=== PATIENT | male | born 1980 | race Caucasian/White ===

== ENCOUNTER 2022-05-22 13:59 | Emergency (ER) | payer OTHER, SELFPAY ==
[2022-05-22 14:09] VITALS: BP 149/92; RESP 18; TEMP 37.5; O2SAT 96; BMI 25.8
[2022-05-22 17:06] LABS: Basophils # 0.1 10^3/uL (0.0-0.1); Basophils % 0.4 %; Eosinophils # 0.1 10^3/uL (0.0-0.8); Eosinophils % 0.9 %; Hematocrit 50.7 % (42.0-52.0); Hemoglobin 17.3 g/dL (11.7-16.6); Lymphocytes # 2.7 10^3/uL (0.8-4.8); Lymphocytes % 18.3 %; Mean Corpuscular HGB Conc 34.1 g/dL (30.0-36.0); Mean Corpuscular Hemoglobin 31.9 pg (28.0-34.0); Mean Corpuscular Volume 93.5 fl (80-94); Monocytes # 1.3 10^3/uL (0.2-0.9); Monocytes % 8.8 %; Neutrophils % 71.2 %; Nucleated Red Blood Cells % 0 %; Platelet Count 327 10^3/cmm (130-400); Red Blood Count 5.42 10^6/uL (4.1-5.3); Red Cell Distribution Width 11.9 % (12.1-15.1); White Blood Count 14.6 10^3/uL (4.0-10.0)
--- NOTE | 2022-05-22 17:12 | ED_ITS ---
HPI - Abdominal Pain General: Chief Complaint: Abdominal Pain Stated Complaint: Lower stomach pain Time Seen by Provider: 05/22/22 17:12 History of Present Illness: 41-year-old male patient comes in today with complaints of left side lower abdominal pain x3 days. Patient appears nontoxic. Patient appears in mild to moderate pain. Patient reports no prior surgeries to the abdomen. Patient denies any chronic medical problems. Associated Symptoms: Reports fever(s) Review of Systems Const: Reports: fever(s) GI: Reports: abdominal pain Physical Exam Const: COMMON NORMALS: alert HENMT: COMMON NORMALS: normocephalic HEAD & SCALP: normocephalic Neck/C-Spine: COMMON NORMALS: full ROM Resp: COMMON NORMALS: normal respiratory effort and clear to auscultation bilaterally AUSCULTATION: clear to auscultation bilaterally Cardio: COMMON NORMALS: regular rate and regular rhythm RATE: regular rate RHYTHM: regular rhythm GI: COMMON NORMALS: Soft to palpation PALPATION: Yes Soft to palpation and Yes Tenderness to palpation present (GI) Details: LLQ : COMMON NORMALS: Yes no CVA tenderness BLADDER/KIDNEY EXAM: Yes no CVA tenderness Back/Pelvis: COMMON NORMALS: no CVA tenderness Extremity: COMMON NORMALS: full ROM Neuro: SENSORIUM/ORIENTATION: Yes alert Skin: COMMON NORMALS: turgor normal GENERAL SKIN EXAM: turgor normal Course Vital Signs: Vital signs: Vital Signs Temperature 99.5 F 05/22/22 14:09 Respiratory Rate 18 05/22/22 14:09 Blood Pressure 149/92 05/22/22 14:09 Pulse Oximetry 96 05/22/22 14:09 Oxygen Delivery Me thod 05/22/22 14:09 MDM - Abdominal Pain Medical Decision Making 41-year-old male patient comes in today with complaints of left lower quadrant abdominal pain. On exam abdomen soft with some tenderness in the left lower quadrant. Rebound tenderness is noted. Bowel sounds are present. Vital signs are normal except for a temperature of 99.5. Blood pressure was 149/92. Differential diagnosis includes constipation, diverticulitis, colitis, urinary tract infection. Laboratory values noted a white count of 14,000. Urinalysis was clear. CMP was unremarkable. CT of the abdomen pelvis noted diverticulitis in the sigmoid colon. No obvious signs perforation was noted. Patient appears nontoxic with no signs of an acute surgical abdomen at this time. We will go ahead and start patient on Cipro and Flagyl for the next 7 days. Patient was al so written for some hydrocodone to help with severe pain. Patient reported understanding of care plan need for follow-up or return to the ER. Lab Data : 05/22/22 16:35 05/22/22 16:35 Labs/Radiology: Radiology Impressions Abdomen/Pelvis CT 05/22/22 17:14 IMPRESSION: 1. Acute sigmoid diverticulitis. Developing perforation cannot be excluded. Follow-up to resolution is recommended. 2. Additional findings, as above. Laboratory Results WBC 14.6 10^3/uL (4.0-10.0) H 05/22/22 16:35 RBC 5.42 10^6/uL (4.1-5.3) H 05/22/22 16:35 Hgb 17.3 g/dL (11.7-16.6) H 05/22/22 16:35 Hct 50.7 % (42.0-52.0) 05/22/22 16:35 MCV 93.5 fl (80-94) 05/22/22 16:35 MCH 31.9 pg (28.0-34.0) 05/22/22 16:35 MCHC 34.1 g/dL (30.0-36.0) 05/22/22 16:35 RDW 11.9 % (12.1-15.1) L 05/22/22 16:35 Plt Count 327 10^3/cmm (130-400) 05/22/22 16:35 MPV 10.0 fL (7.4-10.4) 05/22/22 16:35 Neut % (Auto) 71.2 % 05/22/22 16:35 Lymph % (Auto) 18.3 % 05/22/22 16:35 [place] % (Auto) 8.8 % 05/22/22 16:35 Eos % (Auto) 0.9 % 05/22/22 16:35 Baso % (Auto) 0.4 % 05/22/22 16:35 Neut # (Auto) 10.40 10^3/uL (1.8-7.7) H 05/22/22 16:35 Lymph # (Auto) 2.7 10^3/uL (0.8-4.8) 05/22/22 16:35 [place] # (Auto) 1.3 10^3/uL (0.2-0.9) H 05/22/22 16:35 Eos # (Auto) 0.1 10^3/uL (0.0-0.8) 05/22/22 16:35 Baso # (Auto) 0.1 10^3/uL (0.0-0.1) 05/22/22 16:35 Nucleated RBC % (auto) 0 % 05/22/22 16:35 Nucleated RBCs # 0.0 /100WBC 05/22/22 16:35 Sodium 135 mmol/L (136-145) L 05/22/22 16:35 Potassium 3.8 mmol/L (3.5-5.1) 05/22/22 16:35 Chloride 98 mmol/L (98-107) 05/22/22 16:35 Carbon Dioxide 23 mmol/L (22-29) 05/22/22 16:35 Anion Gap 17.8 (5-19) 05/22/22 16:35 BUN 10 mg/dL (6-20) 05/22/22 16:35 Creatinine 0.7 mg/dL (0.7-1.2) 05/22/22 16:35 GFR Calculation 124.9 mL/min (90-130) 05/22/22 16:35 Glucose 85 mg/dL (65-115) 05/22/22 16:35 Calculated Osmolality 278 mOsm/kg (285-295) L 05/22/22 16:35 Calcium 9.6 mg/dL (8.5-10.5) 05/22/22 16:35 Total Bilirubin 0.5 mg/dL (0.15-1.2) 05/22/22 16:35 AST 14 U/L (0-40) 05/22/22 16:35 ALT 17 U/L (0-41) 05/22/22 16:35 Alkaline Phosphatase 96 U/L (40-130) 05/22/22 16:35 Total Protein 7.9 g/dL (6.6-8.7) 05/22/22 16:35 Albumin 4.3 g/dL (3.5-5.2) 05/22/22 16:35 Globulin 3.6 g/dL (1.3-4.6) 05/22/22 16:35 Lipase 16 U/L (13-60) 05/22/22 16:35 Urine Color Yellow (Yellow) 05/22/22 14:55 Urine Appearance Clear (CLEAR) 05/22/22 14:55 Urine pH 6 (5-7) 05/22/22 14:55 Ur Specific [place] 1.005 (1.005-1.030) 05/22/22 14:55 Urine Protein Neg (Negative) 05/22/22 14:55 Urine Glucose (UA) Norm (Normal) 05/22/22 14:55 Urine Ketones Negative (Negative) 05/22/22 14:55 Urine Blood Neg (Negative) 05/22/22 14:55 Urine Nitrate Negative (Negative) 05/22/22 14:55 Urine Bilirubin Neg (Negative) 05/22/22 14:55 Urine Urobilinogen Neg mg/dL (Negative) 05/22/22 14:55 Ur Leukocyte Esterase Negative (Negative) 05/22/22 14:55 Discharge Plan Discharge Patient Disposition: Home Clinical Impression: Diverticulitis Condition: Stable Prescriptions: New ciprofloxacin HCl 500 mg tablet 500 mg PO BID Qty: 14 0RF metronidazole 500 mg tablet 500 mg PO TID Qty: 21 0RF hydrocodone-acetaminophen 5-325 mg tablet 1 tab PO Q6H PRN (Reason: pain (scale score 7-10)) Qty: 10 0RF Discharge Orders: Discharge ED (Routine); Ordered 05/22/22 Ordered By: Humberto Rodriguez Discharge Diet: Usual diet Discharge Activity: Increase activity as tolerated Patient Instructions: Diverticulitis (ED), Opioid Safety Activity Restrictions/Additional Instructions: Drink plenty of water with medications. Take antibiotics as directed. Follow- up with primary care in 2 to 3 days for recheck. Return to ER for worsening symptoms such as fever greater than 100.5, blood in vomit or stool, inability to hold fluids down, or uncontrolled pain. 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
--- NOTE | 2022-05-22 17:14 | CTR_ITS ---
PROCEDURE INFORMATION: Exam: CT Abdomen And Pelvis With Contrast Exam date and time: 05/22/2022 5:41 PM Age: 41 years old Clinical indication: Abdominal pain; Localized; Left lower quadrant (llq); Additional info: Left lower abd pain TECHNIQUE: Imaging protocol: Computed tomography of the abdomen and pelvis with contrast. Axial, coronal and sagittal reformatted images were created and reviewed. Radiation optimization: All CT scans at this facility use at least one of these dose optimization techniques: automated exposure control; mA and/or kV adjustment per patient size (includes targeted exams where dose is matched to clinical indication); or iterative reconstruction. Contrast material: OMNI 350; Contrast volume: 80 ml; Contrast route: INTRAVENOUS (IV); COMPARISON: No relevant prior studies available. RADIATION DOSE METRICS: Total DLP (mGy-cm): 538.33 FINDINGS: Diaphragm: Small hiatal hernia. Liver: Unremarkable. Gallbladder and bile ducts: No radiodense gallstones. No biliary ductal dilatation. Pancreas: Unremarkable. Spleen: Unremarkable. Adrenal glands: Normal. No mass. Kidneys and ureters: No mass. No radiodense calculi. No hydronephrosis. Stomach and bowel: Focal area of wall thickening and associated pericolonic stranding in the sigmoid colon in a region containing multiple diverticula. Questionable small focus of developing extraluminal gas versus diverticulum (series 4, image 69). No obstruction. No pneumatosis. Appendix: Normal. Intraperitoneal space: No ascites. No organized collection. Vasculature: Unremarkable. No aneurysm. Lymph nodes: No pathologically enlarged lymph nodes. Urinary bladder: Unremarkable as visualized. Reproductive: Unremarkable. Bones/joints: No acute osseous abnormality. Soft tissues: Unremarkable. CT/CT abdomen pelvis w con* [id number] IMPRESSION: 1. Acute sigmoid diverticulitis. Developing perforation cannot be excluded. Follow-up to resolution is recommended. 2. Additional findings, as above.
[2022-05-22 17:19] LABS: Add Urine Microscopic? NO; Charge for UA Resulting for Rev
[2022-05-22 17:21] LABS: Bilirubin Urine Neg (Negative); Blood Urine Neg (Negative); Glucose Urine UA Norm (Normal); Ketones Urine Negative (Negative); Leukocyte Esterase Urine Negative (Negative); Nitrate Urine Negative (Negative); Protein Urine Neg (Negative); Specific Gravity, Urine 1.005 (1.005-1.030); Urine Appearance Clear (CLEAR); Urine Color Yellow (Yellow); Urobilinogen Urine Neg (Negative); pH Urine 6 (5-7)
[2022-05-22 17:33] LABS: Alanine Aminotransferase 17 U/L (0-41); Albumin Level 4.3 g/dL (3.5-5.2); Alkaline Phosphatase 96 U/L (40-130); Anion Gap 17.8 (5-19); Aspartate Amino Transferase 14 U/L (0-40); Blood Urea Nitrogen 10 mg/dL (6-20); Calcium 9.6 mg/dL (8.5-10.5); Carbon Dioxide 23 mmol/L (22-29); Chloride 98 mmol/L (98-107); Globulin 3.6 g/dL (1.3-4.6); Glomerular Filtration Rate 124.9 mL/min (90-130); Glucose 85 mg/dL (65-115); Lipase 16 U/L (13-60); Osmolality Calculated 278 mOsm/kg (285-295); Potassium 3.8 mmol/L (3.5-5.1); Sodium 135 mmol/L (136-145); Total Bilirubin 0.5 mg/dL (0.15-1.2); Total Protein 7.9 g/dL (6.6-8.7)
[2022-05-22] MEDS: sodium chloride 0.9% 500 ML 999 ML IV (17:33)
--- NOTE | 2022-05-22 17:35 | PC.NURSE ---
PT REPORTS THAT HE DOES NOT NEED THE MORPHINE AND ZOFRAN RIGHT NOW. INFORMED HIM I COULD ADM THE MEDICATION WHENEVER HE WAS READY.
[2022-05-22] MEDS: iohexol 350 mg/mL 100 mL Btl IV (17:56)
[2022-05-22] MEDS: metroNIDAZOLE 500 MG Tablet PO (18:37)
[2022-05-22] MEDS: HYDROcodone-acetaminophen 5-325 mg Tablet 1 TAB PO (18:37)
[2022-05-22] MEDS: ciprofloxacin 500 mg Tablet PO (18:37)
[2022-05-22 18:42] VITALS: BP 149/92; RESP 18; TEMP 37.5; O2SAT 96
== END 2022-05-22 18:45 | disposition home or self-care (01) ==
PROVIDERS: Family Medicine; Emergency Provider Nurse Practitioner Family
DX: K57.92 Diverticulitis of intestine, part unspecified, without perforation or abscess without bleeding (principal)
CPT/HCPCS: 36415; 74177; 80053; 81003; 83690; 85025; 96360; 99285; J7040; Q9967